=== PATIENT | female | born 1955 | race Two or more races ===

== ENCOUNTER 2024-06-21 09:41 | Outpatient (AMB) | payer MEDICARE, MEDICAID, SELFPAY ==
[2024-06-21 10:09] VITALS: BP 171/78; PULSE 68; RESP 16; TEMP 36.6; O2SAT 98; BMI 21.9
--- NOTE | 2024-06-21 10:09 | PD.RESCLINIC ---
Vital Signs 06/21/24 10:09 Height 1.57 m Height Method Stated Weight 54.204 kg Weight Measurement Method Standing Scale BMI 21.9 BP 171/78 H Blood Pressure Source Automatic Cuff Blood Pressure Location Left Upper Arm Position Sitting Respiration 16 Pulse 68 Pulse Source Monitor Temp 97.8 F Temp Source Temporal Artery Scan Pulse Oximetry (%) 98 Oxygen Delivery Method Room Air Allergies/Meds Allergies & Medications Allergies No Known Allergies Allergy (Verified 06/21/24 10:09) Medication Reconciliation blood-glucose meter (Accu-Chek Alejandrina Plus Meter) #1 ea 11/21/22 [Rx Confirmed 06/21/24] amlodipine 5 mg tablet 5 mg PO QDAY #30 tabs 06/21/24 [Rx] atorvastatin 80 mg tablet 80 mg PO QDAY 90 days #90 tabs 06/21/24 [Rx] blood sugar diagnostic (Accu-Chek Alejandrina Plus test strips) #100 ea 06/21/24 [Rx] clopidogrel 75 mg tablet (Plavix) 75 mg PO QDAY 90 days #90 tabs 06/21/24 [Rx] empagliflozin 25 mg tablet (Jardiance) 25 mg PO QAM diabetes 90 days #90 tabs 06/21/24 [Rx] lancets (Accu-Chek Softclix Lancets) #100 ea 06/21/24 [Rx] lisinopril 20 mg tablet 20 mg PO QDAY 3 months #90 tabs 06/21/24 [Rx] loratadine 10 mg tablet (Allergy Relief (loratadine)) 10 mg PO Q24H 1 month #60 tabs 06/21/24 [Rx] metformin 500 mg tablet 500 mg PO BIDWMEAL 90 days #180 tabs 06/21/24 [Rx] semaglutide 7 mg tablet (Rybelsus) 7 mg PO QDAY 3 months #90 tabs 06/21/24 [Rx] MA Intake Visit Data Collection New Patient or Established: Established Patient (seen at [facility] within 3 years) Seen by Clinical Staff ONLY (RN/MA): No Pain Present Currently: No Pain scale:: 0 Pain Scale Used: [place]/[employer]ical [place] Agent Required: No PCP or OBGYN visit in last 3 months: No Hx Now: No Do You Feel Safe at Home: Yes Authorities Contacted: N/A Smoking Status Smoking Status: Never smoker Immunization / Flu Flu Vaccine in the Last 12 Months: No Flu Vaccine Exclusion Criteria: No Exclusion Criteria Past Medical History Past Medical History NEUROLOGIC: Positive Cerebrovascular Accident; Negative Neurological Disorders CARDIAC: Positive Cardiac Disorders, Hypercholesterolemia and Hypertension; Negative Congestive Heart Failure RESPIRATORY: Negative Chronic Obstructive Pulmonary Disease (COPD) GASTROINTESTINAL: Negative Gastrointestinal Disorders GENITOURINARY: Negative Genitourinary Disorders or Renal Disease REPRODUCTIVE: Negative Pelvic Inflammatory Disease ENDOCRINE: Positive Diabetes Mellitus Type 2; Negative Diabetes Mellitus Type 1 HEMATOLOGIC: Negative Blood Disorders OTHER HISTORY: Positive Hospitalization (last admission 08/07/22) and Chicken Pox; Negative Autoimmune Disease, Down Syndrome, Developmental Delay, Shingles, Falls, Anesthesia Reactions, Measles or Cancer Family History FAMILY HISTORY: Negative Family Psychiatric Problems, Family Respiratory Disorders, Family Cardiac Disorders or Family Gastrointestinal Problems Surgical History SURGICAL: Positive Tubal Ligation; Negative Cardiac Surgery, Ear Surgery or Abdominal Surgery Social History SMOKING STATUS: Smoking status: Never smoker ALCOHOL: Alcohol Intake: Never HOUSING: Housing: House LIVES WITH: Lives With: Family OCCUPATION: Current occupation: Retired field attendant. Patient Portal Questionaires Social History Living Situation History Housing: House Tobacco History Smoking Status: Never smoker Alcohol History Alcohol Intake: Never Domestic Abuse History Do You Feel Safe at Home: Yes Review of Systems Report any current symptoms Only answer those that you have currently: Past Medical History Past Medical History Have you ever been diagnosed with any of the following: Neurological Problems Cerebrovascular Accident (CVA): Yes Cardiology Problems Hypercholesterolemia: Yes Congestive Heart Failure: No Hypertension: Yes Respiratory Problems Chronic Obstructive Pulmonary Disease (COPD): No Genital/Urinary Problems Renal Disease: No Reproductive Problems Pelvic Inflammatory Disease: No Endocrine Problems Diabetes Mellitus Type 1: No Diabetes Mellitus Type 2: Yes Other Problems Hospitalization: Yes (last admission 08/07/22) Autoimmune Disease: No Down Syndrome: No Developmental Delay: No Shingles: No Falls: No Anesthesia Reactions: No Chicken Pox: Yes Measles: No Cancer: No History of Present Illness HPI Narrative Patient is a 68-year-old Mosotho speaking female with a medical history of CVA, diabetes mellitus type 2, primary hypertension, and hyperlipidemia who presents to [facility] for follow-up. Patient reports since last visit she has been doing good. She denies any recent hospitalizations or acute illness. She has no new symptoms to report today. Patient has history of primary hypertension and currently taking lisinopril. Blood pressure 105/57 and heart rate 83. She denies lightheadedness, dizziness, and no palpitations. Previous systolic blood pressure readings have been trending in the 140s. Patient also denies chest pain, shortness of breath, dyspnea on exertion, and no lower extremity swelling. Patient has been following a low-salt diet. She has been going on daily walks for approximately 30 minutes around the high school. Patient has history of uncontrolled diabetes mellitus type 2. She has been taking Rybelsus, Jardiance, and metformin as prescribed. She denies any GI side effects such as diarrhea, constipation, or indigestion. Previous A1c 8.9% and now 7.6%. She denies any vision changes or numbness/tingling in her feet. She reports she has never seen a aviation electronic warfare operator. Patient also has history of CVA and hyperlipidemia. She denies having any residual deficits from her previous CVA. She has been compliant with daily aspirin 81 mg and high intensity atorvastatin. She denies any muscle pain. 09/12/23 Lipid panel: Total cholesterol 92, triglycerides 107, HDL 32, LDL 40 which is significantly improved from previous lipid panel. She denies seeing blood in her stool or urine. Patient denies requiring any medication refills at this time. Patient is retired and unemployed at this time. 09/12/2023: Chemistry panel: Glucose 88, BUN 11, CR 0.56, eGFR 101, NA 140, K4.7, CL 101, albumin 3.8, alk phos 147, AST 22, ALT 23 Lipid panel: Total cholesterol 92, triglycerides 107, HDL 32, LDL 40 A1c: 7.6% 12/18/2023: 68-year-old woman with past medical history of CVA, diabetes mellitus type 2, hypertension, hyperlipidemia who came today to the [facility] for follow-up, patient stated that she has been feeling well that she recently returned from her trip to [place] denied any acute complaints at this moment like chest pain, palpitations, dizziness, shortness of breath, vertigo, loss of balance or any other associated symptoms at this moment. She is stated that her blood pressure has been well-controlled at home today 113/62, all medications were refilled and due to the patient has been 1 year with dual antiplatelet therapy Plavix and aspirin will give the patient the option due to guidelines recommend 21 days of dual antiplatelet therapy after ischemic stroke otherwise the patient has 2 episodes of CVA 1 year ago we continued Plavix and aspirin for 1 year, I spoke with the patient about preference if she wanted to continue taking aspirin and Plavix and she decided that she will like to take only 1 medication for which we will continue Plavix 75 mg p.o. daily, the patient has been presenting blood pressure on the soft side amlodipine dose was decreased to 5 mg p.o. daily and we will continue Rybelsus 5 mg p.o. daily, metformin 500 mg p.o. twice daily Plavix 75 mg p.o. daily and atorvastatin 80 mg p.o. q. night, will give patient referral for yearly follow-up with fire fighter airport and aviation electronic warfare operator as well as referral for bone densitometry to scan for osteoporosis, patient was counseled about screening colonoscopy and she stated that at this moment she will like not to do the test and that she will think about it later, will give patient recommendation for Pneumovax and Shingrix vaccine. Follow-up in 1 month with labs results, A1c, CMP, lipid panel as well as micro albuminuria 12/15/2023: 68-year-old woman with past medical history of CVA, diabetes mellitus type 2, hypertension, hyperlipidemia who has seen via telehealth for lab results. patient stated that she is feeling well denied any acomplaints at this moment. labs results showed A1c downtrend from 7.6 to 7.0, microalbumin showed less than < 3.0 and albumin/creatinine ratio less than <8 within normal limits, we will continue current management for diabetes mellitus type 2 with rybelsus,empaglifozin and metformin, atorvastatin, plavix and lisinopril . follow up in 6 months with labs. pending dexascan and ophtalmologist and aviation electronic warfare operator annual follow up. 02/09/2024: 68-year-old woman with past medical history of CVA, diabetes mellitus type 2, hypertension, hyperlipidemia [facility] Patient denied any acute complains stated that she is feeling well, denied chest pain, palpitations, headache or dizzines . she stated that came today for medication refills due to she is traveling to [place] in early february/2024. Medication refills were given and we will continue current ,management with rybelsus, empaglifozin and metformin as well as atortastatin, plavix, lisinopril and amlodipine. Follow up in 6 months with labs, patient has a pending appointment for podiatry and ophthalmology for annual check up. we will work on pre auth por dexascan for osteoporosis screening. 06/21/2024: 69-year-old woman with past medical history of CVA, diabetes mellitus type 2, hypertension, hyperlipidemia who [facility]. Patient denied any other complaint at this moment and she stated that she is feeling well and denied any chest pain, palpitations, headache at or dizziness at the moment otherwise she recently arrive from [place] from vacation and she endorsed while she was traveling had an episode of dizziness and she went to the hospital and was found to be anemic requiring 2 units of PRBCs but she does not know the source of the bleeding. She denied melena's, black tarry stools, hematemesis at this moment. Patient previously was referred to gastroenterology for screening colonoscopy and due to insurance authorization needed to wait at a 30-day waiting to do the procedure. She also stated that while she was in [place] the physician who saw her she had her blood pressure medications. Today patient is hypertensive to 170s, labs showed a hemoglobin of 11.6 MCV of 78, platelets within normal limits, lipid panel cholesterol 100.5, triglycerides 144, HDL 36 and LDL 44, A1c increased from 7.0 to 7.9, albumin/creatinine radial less than 7, TSH within normal limits. Patient stated that she has an appointment with photographic technician and she stated that she does not have any retinopathy at this moment otherwise due to patient present bilateral pterygium we will order fire fighter airport referral as well as aviation electronic warfare operator referral for diabetic neuropathy screen. Patient stated that in the past was never called from insurance regarding authorization for aviation electronic warfare operator. We counseled the patient about importance of medication compliance as well as encourage healthy diet and lifestyle modifications to improve A1c. Due to patient present uncontrolled diabetes mellitus type 2 at this moment we will increase Rybelsus from 3 mg to 7 milligrams as well as lisinopril from 10 mg to 20 mg and follow-up in 2 weeks with BMP to monitor kidney function. Review of Systems Review of Systems Systems Reviewed: All systems reviewed, normal except as documented Objective/Exam Narrative Physical exam: General: No acute distress, well appearing, alert, interactive. HEENT: NC/AT, PERRL, EOMI, bilateral pterygium, good conjugate gaze, moist mucous membranes, oropharynx clear. Neck: Supple, No masses, No adenopathy, carotid pulse 2+ bilaterally without bruits, No JVD, normal range of motion. Chest: Symmetrical, atraumatic, and with equal expansion , Nontender on palpation no deformity and no crepitus. CVS: S1 and S2 present, Regular rate and rhythm, No murmurs, rubs or gallops perceived during auscultation. Lungs: Normal respiratory effort, CTAB, no wheezing, rhonchi or rales perceived during auscultation, No intercostal or subcostal retraction. Abdomen : Soft, no tenderness to palpation, no guarding ,no rebound, +BS, no organomegaly. Extremities: No edema, warm well perfused, normal tone and ROM, strength and sensation intact, cap refill less than 2, +2 dp equal bilaterally, able to move all 4 extremities spontaneously. Skin: Intact, no rashes, no lesions, no erythema or jaundice noted Neuro: AOx4, no focal neurologic deficits noted, GCS 15 Psych: Appropriate mood and affect. Assessment & Plan Diagnosis / Problem List (1) Type 2 diabetes mellitus: Status: Acute Qualifiers: Diabetes mellitus complication status: without complication Qualified Code(s): E11.9 - Type 2 diabetes mellitus without complications Assessment & Plan: last A1c 7.9 on 06/14/24 Uncontrolled at this moment will continue to encourage healthy lifestyle modifications and diet as well as continue medication adherence, to achieving good glucose control and be back on track on A1c goal of less than 7, microalbumin test did not showed proteinuria at this time other eugene we will continue ELLI to prevent proteinuria and decrease risk of kidney disease. Plan: ? Increase Rybelsus to 7 mg p.o. daily ? Continue metformin 500 mg p.o. twice daily ? Empagliflozin 25 mg p.o. daily follow-up with 3 months with labs (2) Uncontrolled hypertension: Status: Acute Assessment & Plan: Patient has past medical history of hypertension well-controlled initially on amlodipine 5 mg p.o. daily and lisinopril 10 mg p.o. daily otherwise d during our recent visit to [place] a physician change her progress prescription of lisinopril and switch to valsartan and metoprolol. We counseled the patient of importance to continue medications prescribed by PCP as well as healthy diet and lifestyle modifications, we will increase lisinopril dose to 20 g p.o. daily and follow-up in 2 weeks with BMP to monitor kidney function Plan: ? Increase lisinopril to 20 mg p.o. daily ? Continue amlodipine 5 mg p.o. daily ? Follow-up in 2 weeks with BMP to monitor kidney function (3) Pterygium of both eyes: Status: Acute Assessment & Plan: Patient has bilateral pterygium most likely secondary to sun exposure Plan: ? Ophthalmology Technician referral for possible surgery (4) Microcytic anemia: Status: Acute Assessment & Plan: Patient stated then a recent trip to [place] was found to be anemic requiring 2 units of PRBCs otherwise patient stated that she was never told what was the cause of the bleeding most likely could be secondary to diverticulosis versus hemorrhoids? vs malignancy? Otherwise malignancy less likely due to patient does not endorse symptoms like weight loss, poor appetite, generalized weakness or constipation. Patient was ordered in the past colonoscopy screening for malignant neoplasm of the colon otherwise due to insurance authorization patient need to have a 30-day wait for procedure. In this basis we will order referral for gastroenterology for colonoscopy screening Hemoglobin 11.6 MCV 78 Plan: ? Reorder referral for gastroenterology for colonoscopy screening (5) Hyperlipidemia: Status: Acute Qualifiers: Hyperlipidemia type: unspecified Qualified Code(s): E78.5 - Hyperlipidemia, unspecified Assessment & Plan: Patient has previous history of hyperlipidemia and ischemic stroke Plan: Continue atorvastatin 80 mg p.o. q. night follow-up with labs in 6 months (6) History of CVA (cerebrovascular accident) without residual deficits: Status: Acute Assessment & Plan: Patient was on 1 year in dual antiplatelet therapy with aspirin and Plavix per guidelines is require 21 days of dual antiplatelet therapy for ischemic stroke we spoke with the patient about preference to continue aspirin and Plavix or continue with only 1 medication for stroke prevention and patient decided that she would like to continue with Plavix for which ASA was discontinued. Plan: Continue Plavix 75 mg p.o. daily (7) Screen for colon cancer: Status: Acute Assessment & Plan: Previous order for colonoscopy otherwise due to insurance authorization we will reorder referral for gastroenterology Plan: ? Reorder gastroenterology referral for colonoscopy screening Orders: Referrals Podiatry Z13.89 - Encounter for screening for other disorder Ophthalmology H11.003 - Unspecified pterygium of eye, bilateral Gastroenterology Z12.11 - Encounter for screening for malignant neoplasm of colon Additional Assessment Patient discussed with my attending Dr Shu Raymond MD PGY-3 Disclaimer: Despite multiple revisions, due to the dictation software being used, the document bellow may not be free of grammatical errors including phonetic/typographic errors. However, this does not deter from our commitment to providing health care in the patient's best interest in mind. Internal Medicine Attending Note: Case discussed with and agree with note and management plan of Resident Physician as per Resident's Note above. Issues of concern for present visit are as follows: Follow-up visit. Diabetes self-care reviewed including diet, exercise, footcare, eye care. Hemoglobin A1c up to 7.9. Patient recently in [place]. Plan increase in Rybelsus to 7 mg daily from 3 mg. Patient noted to be hypertensive today at 171/78. Will increase lisinopril to 20 mg. Follow-up in 2 weeks with labs. Apparently in [place], patient had an episode of dizziness, went to the hospital, found to be anemic, apparently required 2 units transfusion. No source of bleeding was identified. Recheck of hemoglobin on recent labs showed hemoglobin of 11.6 with MCV of 78. Monitor for further bleeding. Patient has previously been referred to gastroenterology for screening colonoscopy which should be completed. Nav Ireland MD Addendum: 06/24/2024-patient presented to office. She was unable to obtain Rybelsus 7 mg from the pharmacy as she had recently been supplied with a 90-day supply of Rybelsus 3 mg. Patient instructed to continue on Rybelsus 3 mg daily, and to try to limit carbohydrate intake and really watch diet. Will address at follow-up visit. Advanced Care Planning Advance care planning discussed with:: patient Physician Billing Established Patient Established Patient: E/M Level 3-CPT 65143 Previous Counseling Previous Counseling: IND 30 min-CPT 52811 (Lifestyle modifications and medications adherence to achieve blood pressure and glycemic control) Office Procedures [facility] Level of Care Nursing/Assessment Patient Status: Established Patient Nursing Assessment/Reassessment: Medication Reconciliation, Update PMH in EMR and Vital Signs Coordination of Care: Complex Care and Chronic Disease 1-5, Consent,records obtained, informed consent, Education Simp Pt/Fam, Ref for ancillary service, Results/Orders obtained and Staff clarify orders Established Patient Charge Established Patient Point Assignment: 110 Established Patient Point Charge: EP Level 3 (80-115)
== END 2024-06-21 10:54 | disposition home or self-care (01) ==
LOC: HODAHC 09:41
PROVIDERS: PCP Student in an Organized Health Care Education/Training Program; Referring Provider Student in an Organized Health Care Education/Training Program; Supervising Provider Internal Medicine; Visit Provider Student in an Organized Health Care Education/Training Program
DX: H11.003 Unspecified pterygium of eye, bilateral (principal); I10 Essential (primary) hypertension; D50.9 Iron deficiency anemia, unspecified; E78.5 Hyperlipidemia, unspecified; E11.9 Type 2 diabetes mellitus without complications; Z79.84 Long term (current) use of oral hypoglycemic drugs; Z86.73 Personal history of transient ischemic attack (TIA), and cerebral infarction without residual deficits; Z79.02 Long term (current) use of antithrombotics/antiplatelets
CPT/HCPCS: 99213; G0463

== ENCOUNTER 2024-07-05 09:54 | Outpatient (AMB) | payer MEDICARE, MEDICAID, SELFPAY ==
[2024-07-05 10:05] VITALS: BP 138/68; PULSE 104; RESP 16; TEMP 36.8; O2SAT 98; BMI 21.7
--- NOTE | 2024-07-05 10:05 | PD.RESCLINIC ---
Vital Signs 07/05/24 10:05 Height 1.57 m Height Method Stated Weight 53.524 kg Weight Measurement Method Standing Scale BMI 21.7 BP 138/68 H Blood Pressure Source Automatic Cuff Blood Pressure Location Left Upper Arm Position Sitting Respiration 16 Pulse 104 H Pulse Source Monitor Temp 98.2 F Temp Source Temporal Artery Scan Pulse Oximetry (%) 98 Oxygen Delivery Method Room Air Allergies/Meds Allergies & Medications Allergies No Known Allergies Allergy (Verified 07/05/24 10:06) Medication Reconciliation blood-glucose meter (Accu-Chek Alejandrina Plus Meter) #1 ea 11/21/22 [Rx Confirmed 07/05/24] amlodipine 5 mg tablet 5 mg PO QDAY #30 tabs 07/05/24 [Rx] atorvastatin 80 mg tablet 80 mg PO QDAY 90 days #90 tabs 07/05/24 [Rx] blood sugar diagnostic (Accu-Chek Alejandrina Plus test strips) #100 ea 07/05/24 [Rx] clopidogrel 75 mg tablet (Plavix) 75 mg PO QDAY 90 days #90 tabs 07/05/24 [Rx] empagliflozin 25 mg tablet (Jardiance) 25 mg PO QAM diabetes 90 days #90 tabs 07/05/24 [Rx] lancets (Accu-Chek Softclix Lancets) #100 ea 07/05/24 [Rx] lisinopril 20 mg tablet 20 mg PO QDAY 3 months #90 tabs 07/05/24 [Rx] loratadine 10 mg tablet (Allergy Relief (loratadine)) 10 mg PO Q24H 1 month #60 tabs 07/05/24 [Rx] metformin 500 mg tablet 500 mg PO BIDWMEAL 90 days #180 tabs 07/05/24 [Rx] semaglutide 7 mg tablet (Rybelsus) 7 mg PO QDAY 3 months #90 tabs 07/05/24 [Rx] MA Intake Visit Data Collection New Patient or Established: Established Patient (seen at [facility] within 3 years) Seen by Clinical Staff ONLY (RN/MA): No Pain Present Currently: No Pain scale:: 0 Pain Scale Used: Brewster-Aggarwal/Numerical Lpn Home Health Required: No PCP or OBGYN visit in last 3 months: No Hx Now: No Do You Feel Safe at Home: Yes Authorities Contacted: N/A Smoking Status Smoking Status: Never smoker Immunization / Flu Flu Vaccine in the Last 12 Months: No Flu Vaccine Exclusion Criteria: No Exclusion Criteria Past Medical History Past Medical History NEUROLOGIC: Positive Cerebrovascular Accident; Negative Neurological Disorders CARDIAC: Positive Cardiac Disorders, Hypercholesterolemia and Hypertension; Negative Congestive Heart Failure RESPIRATORY: Negative Chronic Obstructive Pulmonary Disease (COPD) GASTROINTESTINAL: Negative Gastrointestinal Disorders GENITOURINARY: Negative Genitourinary Disorders or Renal Disease REPRODUCTIVE: Negative Pelvic Inflammatory Disease ENDOCRINE: Positive Diabetes Mellitus Type 2; Negative Diabetes Mellitus Type 1 HEMATOLOGIC: Negative Blood Disorders OTHER HISTORY: Positive Hospitalization (last admission 08/07/22) and Chicken Pox; Negative Autoimmune Disease, Down Syndrome, Developmental Delay, Shingles, Falls, Anesthesia Reactions, Measles or Cancer Family History FAMILY HISTORY: Negative Family Psychiatric Problems, Family Respiratory Disorders, Family Cardiac Disorders or Family Gastrointestinal Problems Surgical History SURGICAL: Positive Tubal Ligation; Negative Cardiac Surgery, Ear Surgery or Abdominal Surgery Social History SMOKING STATUS: Smoking status: Never smoker ALCOHOL: Alcohol Intake: Never HOUSING: Housing: House LIVES WITH: Lives With: Family OCCUPATION: Current occupation: Retired field advisor. Patient Portal Questionaires Social History Living Situation History Housing: House Tobacco History Smoking Status: Never smoker Alcohol History Alcohol Intake: Never Domestic Abuse History Do You Feel Safe at Home: Yes Review of Systems Report any current symptoms Only answer those that you have currently: Past Medical History Past Medical History Have you ever been diagnosed with any of the following: Neurological Problems Cerebrovascular Accident (CVA): Yes Cardiology Problems Hypercholesterolemia: Yes Congestive Heart Failure: No Hypertension: Yes Respiratory Problems Chronic Obstructive Pulmonary Disease (COPD): No Genital/Urinary Problems Renal Disease: No Reproductive Problems Pelvic Inflammatory Disease: No Endocrine Problems Diabetes Mellitus Type 1: No Diabetes Mellitus Type 2: Yes Other Problems Hospitalization: Yes (last admission 08/07/22) Autoimmune Disease: No Down Syndrome: No Developmental Delay: No Shingles: No Falls: No Anesthesia Reactions: No Chicken Pox: Yes Measles: No Cancer: No History of Present Illness HPI Narrative Patient is a 68-year-old Dominican speaking female with a medical history of CVA, diabetes mellitus type 2, primary hypertension, and hyperlipidemia who presents to [facility] for follow-up. Patient reports since last visit she has been doing good. She denies any recent hospitalizations or acute illness. She has no new symptoms to report today. Patient has history of primary hypertension and currently taking lisinopril. Blood pressure 105/57 and heart rate 83. She denies lightheadedness, dizziness, and no palpitations. Previous systolic blood pressure readings have been trending in the 140s. Patient also denies chest pain, shortness of breath, dyspnea on exertion, and no lower extremity swelling. Patient has been following a low-salt diet. She has been going on daily walks for approximately 30 minutes around the high school. Patient has history of uncontrolled diabetes mellitus type 2. She has been taking Rybelsus, Jardiance, and metformin as prescribed. She denies any GI side effects such as diarrhea, constipation, or indigestion. Previous A1c 8.9% and now 7.6%. She denies any vision changes or numbness/tingling in her feet. She reports she has never seen a flower arranger. Patient also has history of CVA and hyperlipidemia. She denies having any residual deficits from her previous CVA. She has been compliant with daily aspirin 81 mg and high intensity atorvastatin. She denies any muscle pain. 09/12/23 Lipid panel: Total cholesterol 92, triglycerides 107, HDL 32, LDL 40 which is significantly improved from previous lipid panel. She denies seeing blood in her stool or urine. Patient denies requiring any medication refills at this time. Patient is retired and unemployed at this time. 09/12/2023: Chemistry panel: Glucose 88, BUN 11, CR 0.56, eGFR 101, NA 140, K4.7, CL 101, albumin 3.8, alk phos 147, AST 22, ALT 23 Lipid panel: Total cholesterol 92, triglycerides 107, HDL 32, LDL 40 A1c: 7.6% 12/18/2023: 68-year-old woman with past medical history of CVA, diabetes mellitus type 2, hypertension, hyperlipidemia who came today to the [facility] for follow-up, patient stated that she has been feeling well that she recently returned from her trip to [place] denied any acute complaints at this moment like chest pain, palpitations, dizziness, shortness of breath, vertigo, loss of balance or any other associated symptoms at this moment. She is stated that her blood pressure has been well-controlled at home today 113/62, all medications were refilled and due to the patient has been 1 year with dual antiplatelet therapy Plavix and aspirin will give the patient the option due to guidelines recommend 21 days of dual antiplatelet therapy after ischemic stroke otherwise the patient has 2 episodes of CVA 1 year ago we continued Plavix and aspirin for 1 year, I spoke with the patient about preference if she wanted to continue taking aspirin and Plavix and she decided that she will like to take only 1 medication for which we will continue Plavix 75 mg p.o. daily, the patient has been presenting blood pressure on the soft side amlodipine dose was decreased to 5 mg p.o. daily and we will continue Rybelsus 5 mg p.o. daily, metformin 500 mg p.o. twice daily Plavix 75 mg p.o. daily and atorvastatin 80 mg p.o. q. night, will give patient referral for yearly follow-up with customer advocacy manager and flower arranger as well as referral for bone densitometry to scan for osteoporosis, patient was counseled about screening colonoscopy and she stated that at this moment she will like not to do the test and that she will think about it later, will give patient recommendation for Pneumovax and Shingrix vaccine. Follow-up in 1 month with labs results, A1c, CMP, lipid panel as well as micro albuminuria 12/15/2023: 68-year-old woman with past medical history of CVA, diabetes mellitus type 2, hypertension, hyperlipidemia who has seen via telehealth for lab results. patient stated that she is feeling well denied any acomplaints at this moment. labs results showed A1c downtrend from 7.6 to 7.0, microalbumin showed less than < 3.0 and albumin/creatinine ratio less than <8 within normal limits, we will continue current management for diabetes mellitus type 2 with rybelsus,empaglifozin and metformin, atorvastatin, plavix and lisinopril . follow up in 6 months with labs. pending dexascan and ophtalmologist and flower arranger annual follow up. 02/09/2024: 68-year-old woman with past medical history of CVA, diabetes mellitus type 2, hypertension, hyperlipidemia who came today to the [facility] for follow up. Patient denied any acute complains stated that she is feeling well, denied chest pain, palpitations, headache or dizzines . she stated that came today for medication refills due to she is traveling to [place] in early february/2024. Medication refills were given and we will continue current ,management with rybelsus, empaglifozin and metformin as well as atortastatin, plavix, lisinopril and amlodipine. Follow up in 6 months with labs, patient has a pending appointment for podiatry and ophthalmology for annual check up. we will work on pre auth por dexascan for osteoporosis screening. 06/21/2024: 69-year-old woman with past medical history of CVA, diabetes mellitus type 2, hypertension, hyperlipidemia who came today to the [facility] for 6-month follow-up. Patient denied any other complaint at this moment and she stated that she is feeling well and denied any chest pain, palpitations, headache at or dizziness at the moment otherwise she recently arrive from [place] from vacation and she endorsed while she was traveling had an episode of dizziness and she went to the hospital and was found to be anemic requiring 2 units of PRBCs but she does not know the source of the bleeding. She denied melena's, black tarry stools, hematemesis at this moment. Patient previously was referred to gastroenterology for screening colonoscopy and due to insurance authorization needed to wait at a 30-day waiting to do the procedure. She also stated that while she was in [place] the physician who saw her she had her blood pressure medications. Today patient is hypertensive to 170s, labs showed a hemoglobin of 11.6 MCV of 78, platelets within normal limits, lipid panel cholesterol 100.5, triglycerides 144, HDL 36 and LDL 44, A1c increased from 7.0 to 7.9, albumin/creatinine radial less than 7, TSH within normal limits. Patient stated that she has an appointment with ice bag assembler and she stated that she does not have any retinopathy at this moment otherwise due to patient present bilateral pterygium we will order customer advocacy manager referral as well as flower arranger referral for diabetic neuropathy screen. Patient stated that in the past was never called from insurance regarding authorization for flower arranger. We counseled the patient about importance of medication compliance as well as encourage healthy diet and lifestyle modifications to improve A1c. Due to patient present uncontrolled diabetes mellitus type 2 at this moment we will increase Rybelsus from 3 mg to 7 milligrams as well as lisinopril from 10 mg to 20 mg and follow-up in 2 weeks with BMP to monitor kidney function. 07/05/2024: 69-year-old woman with past medical history of CVA, diabetes mellitus type 2, hypertension, hyperlipidemia who came today to the [facility] for follow up with labs after incresing her dose of lisinopril to 20 mg q day . patient stated that she is feeling well denied any acute complains at this moment , like dizzyness, sob , melenas or any other associated symptoms. she stated that she saw her flower arranger already and he order some CMP for check liver function before prescibing antifungals for onychomiscosis . pending gastroenterology appointment for screen colonoscopy and ophatalmology appointment for pterigium possible surgery. BMP shows creatinine has been stable 0.63 after increasing the lisinopril dose, blood pressure reading today was well-controlled 138/68 we will follow-up in 2 months with labs and we will assess patient medication tolerance and later we can try to increase the dose for target blood pressure below 130/90 .We gave patient refills of all the medications Rybelsus, lisinopril, amlodipine, metformin, atorvastatin and Plavix. And we will follow-up with labs in August before patient travel back to [place] for 3 months vacation. Review of Systems Review of Systems Systems Reviewed: All systems reviewed, normal except as documented Objective/Exam Narrative Physical exam: General: No acute distress, well appearing, alert, interactive. HEENT: NC/AT, PERRL, EOMI, bilateral pterygium, good conjugate gaze, moist mucous membranes, oropharynx clear. Neck: Supple, No masses, No adenopathy, carotid pulse 2+ bilaterally without bruits, No JVD, normal range of motion. Chest: Symmetrical, atraumatic, and with equal expansion , Nontender on palpation no deformity and no crepitus. CVS: S1 and S2 present, Regular rate and rhythm, No murmurs, rubs or gallops perceived during auscultation. Lungs: Normal respiratory effort, CTAB, no wheezing, rhonchi or rales perceived during auscultation, No intercostal or subcostal retraction. Abdomen : Soft, no tenderness to palpation, no guarding ,no rebound, +BS, no organomegaly. Extremities: No edema, bilateral onychomycosis, warm well perfused, normal tone and ROM, strength and sensation intact, cap refill less than 2, +2 dp equal bilaterally, able to move all 4 extremities spontaneously. Skin: Intact, no rashes, no lesions, no erythema or jaundice noted Neuro: AOx4, no focal neurologic deficits noted, GCS 15 Psych: Appropriate mood and affect. Assessment & Plan Diagnosis / Problem List (1) Uncontrolled hypertension: Status: Acute Assessment & Plan: Patient has past medical history of hypertension well-controlled initially on amlodipine 5 mg p.o. daily and lisinopril 10 mg p.o. daily otherwise d during our recent visit to [place] a physician change her progress prescription of lisinopril and switch to valsartan and metoprolol. We counseled the patient of importance to continue medications prescribed by PCP as well as healthy diet and lifestyle modifications, patient tolerated well lisinopril 20 kidney function within normal limits after dose was increased. We will assess medication tolerance against in 2 months for further goal of blood pressure below 130/90 Plan: ? Continue lisinopril to 20 mg p.o. daily ? Continue amlodipine 5 mg p.o. daily ? Follow-up in 2 months with labs (2) Type 2 diabetes mellitus: Status: Acute Qualifiers: Diabetes mellitus complication status: without complication Qualified Code(s): E11.9 - Type 2 diabetes mellitus without complications Assessment & Plan: last A1c 7.9 on 06/14/24 Uncontrolled at this moment will continue to encourage healthy lifestyle modifications and diet as well as continue medication adherence, to achieving good glucose control and be back on track on A1c goal of less than 7, microalbumin test did not showed proteinuria at this time other eugene we will continue ELLI to prevent proteinuria and decrease risk of kidney disease. Plan: ? Continue Rybelsus to 7 mg p.o. daily ? Continue metformin 500 mg p.o. twice daily ? Empagliflozin 25 mg p.o. daily follow-up with 2 months with lab (3) Microcytic anemia: Status: Acute Assessment & Plan: Patient stated then a recent trip to [place] was found to be anemic requiring 2 units of PRBCs otherwise patient stated that she was never told what was the cause of the bleeding most likely could be secondary to diverticulosis versus hemorrhoids? vs malignancy? Otherwise malignancy less likely due to patient does not endorse symptoms like weight loss, poor appetite, generalized weakness or constipation. Patient was ordered in the past colonoscopy screening for malignant neoplasm of the colon otherwise due to insurance authorization patient need to have a 30-day wait for procedure. In this basis we will order referral for gastroenterology for colonoscopy screening Hemoglobin 11.6 MCV 78 Plan: ? Reorder referral for gastroenterology for colonoscopy screening ? Follow-up in 2 months with CBC, ferritin, iron panel (4) Pterygium of both eyes: Status: Acute Assessment & Plan: Patient has bilateral pterygium most likely secondary to sun exposure Plan: ? Demand Planning Manager referral for possible surgery (5) Hyperlipidemia: Status: Acute Qualifiers: Hyperlipidemia type: unspecified Qualified Code(s): E78.5 - Hyperlipidemia, unspecified Assessment & Plan: Patient has previous history of hyperlipidemia and ischemic stroke Plan: Continue atorvastatin 80 mg p.o. q. night follow-up with labs in 2 months (6) History of CVA (cerebrovascular accident) without residual deficits: Status: Acute Assessment & Plan: Patient was on 1 year in dual antiplatelet therapy with aspirin and Plavix per guidelines is require 21 days of dual antiplatelet therapy for ischemic stroke we spoke with the patient about preference to continue aspirin and Plavix or continue with only 1 medication for stroke prevention and patient decided that she would like to continue with Plavix for which ASA was discontinued. Plan: Continue Plavix 75 mg p.o. daily (7) Screen for colon cancer: Status: Acute Assessment & Plan: Previous order for colonoscopy otherwise due to insurance authorization we will reorder referral for gastroenterology Plan: ? Pending gastroenterology appointment for colonoscopy screening Orders: Orders Ambulatory Hemoglobin A1C 2 Months Iron Panel 2 Months Comprehensive Metabolic Panel 2 Days CBC 2 Months D50.9 - Iron deficiency anemia, unspecified Lipid Panel 2 Months Ferritin 2 Months Additional Assessment Patient discussed with my attending Dr Shu Raymond MD PGY-3 Disclaimer: Despite multiple revisions, due to the dictation software being used, the document bellow may not be free of grammatical errors including phonetic/typographic errors. However, this does not deter from our commitment to providing health care in the patient's best interest in mind. Internal Medicine Attending Note: Case discussed with and agree with note and management plan of Resident Physician as per Resident's Note above. Issues of concern for present visit are as follows: Follow-up visit. Tolerated increased dose of ELLI inhibitor. Diabetes self-care reviewed including diet, exercise, footcare, eye care. Labs reviewed, in acceptable range. Blood pressure under better control today at 138/68. Needed refills provided today. Patient is to follow-up with ophthalmology as well has a pending gastroenterology appointment for screening colonoscopy. We will see prior to her returning to [place] where she stays for an extended period of time each year. Nav Ireland MD Advanced Care Planning Advance care planning discussed with:: patient Physician Billing Established Patient Established Patient: E/M Level 3-CPT 05012 Established PCPM Established Patient PCPM: E/M 65+ yrs-CPT 70302 Previous Counseling Previous Counseling: IND 30 min-CPT 39131 Office Procedures [facility] Level of Care Nursing/Assessment Patient Status: Established Patient Nursing Assessment/Reassessment: Medication Reconciliation, Update PMH in EMR and Vital Signs Coordination of Care: Complex Care and Chronic Disease 1-5, Consent,records obtained, informed consent, Education Simp Pt/Fam, Results/Orders obtained and Staff clarify orders Established Patient Charge Established Patient Point Assignment: 90 Established Patient Point Charge: EP Level 3 (80-115)
== END 2024-07-05 10:26 | disposition home or self-care (01) ==
LOC: HODAHC 09:54
PROVIDERS: PCP Student in an Organized Health Care Education/Training Program; Referring Provider Student in an Organized Health Care Education/Training Program; Supervising Provider Internal Medicine; Visit Provider Student in an Organized Health Care Education/Training Program
DX: Z71.2 Person consulting for explanation of examination or test findings (principal); I10 Essential (primary) hypertension; E11.9 Type 2 diabetes mellitus without complications; E78.5 Hyperlipidemia, unspecified; Z86.73 Personal history of transient ischemic attack (TIA), and cerebral infarction without residual deficits; Z79.84 Long term (current) use of oral hypoglycemic drugs; D50.9 Iron deficiency anemia, unspecified; H11.003 Unspecified pterygium of eye, bilateral; Z79.02 Long term (current) use of antithrombotics/antiplatelets
CPT/HCPCS: 99213; G0463

== ENCOUNTER 2024-08-30 09:19 | Outpatient (AMB) | payer MEDICARE, MEDICAID, SELFPAY ==
[2024-08-30 09:39] VITALS: BP 146/75; PULSE 74; RESP 18; TEMP 36.6; O2SAT 99; BMI 21.5
--- NOTE | 2024-08-30 09:39 | PD.RESCLINIC ---
Vital Signs 08/30/24 09:39 Height 1.57 m Height Method Stated Weight 53.127 kg Weight Measurement Method Standing Scale BMI 21.5 BP 146/75 H Blood Pressure Source Automatic Cuff Blood Pressure Location Right Upper Arm Position Sitting Respiration 18 Pulse 74 Pulse Source Monitor Temp 97.8 F Temp Source Temporal Artery Scan Pulse Oximetry (%) 99 Oxygen Delivery Method Room Air Allergies/Meds Allergies & Medications Allergies No Known Allergies Allergy (Verified 08/30/24 09:42) Medication Reconciliation blood-glucose meter (Accu-Chek Alejandrina Plus Meter) #1 ea 11/21/22 [Rx Confirmed 08/30/24] amlodipine 10 mg tablet 10 mg PO QDAY 3 months #90 tabs 08/30/24 [Rx] atorvastatin 80 mg tablet 80 mg PO QDAY 90 days #90 tabs 08/30/24 [Rx] blood sugar diagnostic (Accu-Chek Alejandrina Plus test strips) #100 ea 08/30/24 [Rx] clopidogrel 75 mg tablet (Plavix) 75 mg PO QDAY 90 days #90 tabs 08/30/24 [Rx] empagliflozin 25 mg tablet (Jardiance) 25 mg PO QAM diabetes 90 days #90 tabs 08/30/24 [Rx] lancets (Accu-Chek Softclix Lancets) #100 ea 08/30/24 [Rx] lisinopril 20 mg tablet 20 mg PO QDAY 3 months #90 tabs 08/30/24 [Rx] loratadine 10 mg tablet (Allergy Relief (loratadine)) 10 mg PO Q24H 1 month #60 tabs 08/30/24 [Rx] metformin 500 mg tablet 500 mg PO BIDWMEAL 90 days #180 tabs 08/30/24 [Rx] pantoprazole 40 mg tablet,delayed release 40 mg PO QDAY gerd 3 months #90 tabs 08/30/24 [Rx] semaglutide 7 mg tablet (Rybelsus) 7 mg PO QDAY 3 months #90 tabs 08/30/24 [Rx] MA Intake Visit Data Collection New Patient or Established: Established Patient (seen at [facility] within 3 years) Seen by Clinical Staff ONLY (RN/MA): No Pain Present Currently: No Pain scale:: 0 Pain Scale Used: BrewsterAnna/Numerical Combination Building Inspector Required: No PCP or OBGYN visit in last 3 months: Yes Hx Now: No Smoking Status Smoking Status: Never smoker Immunization / Flu Flu Vaccine in the Last 12 Months: Yes Flu Vaccine Exclusion Criteria: Already Received Past Medical History Past Medical History NEUROLOGIC: Positive Cerebrovascular Accident; Negative Neurological Disorders CARDIAC: Positive Cardiac Disorders, Hypercholesterolemia and Hypertension; Negative Congestive Heart Failure RESPIRATORY: Negative Chronic Obstructive Pulmonary Disease (COPD) GASTROINTESTINAL: Negative Gastrointestinal Disorders GENITOURINARY: Negative Genitourinary Disorders or Renal Disease REPRODUCTIVE: Negative Pelvic Inflammatory Disease ENDOCRINE: Positive Diabetes Mellitus Type 2; Negative Diabetes Mellitus Type 1 HEMATOLOGIC: Negative Blood Disorders OTHER HISTORY: Positive Hospitalization (last admission 08/07/22) and Chicken Pox; Negative Autoimmune Disease, Down Syndrome, Developmental Delay, Shingles, Falls, Anesthesia Reactions, Measles or Cancer Family History FAMILY HISTORY: Negative Family Psychiatric Problems, Family Respiratory Disorders, Family Cardiac Disorders or Family Gastrointestinal Problems Surgical History SURGICAL: Positive Tubal Ligation; Negative Cardiac Surgery, Ear Surgery or Abdominal Surgery Social History SMOKING STATUS: Smoking status: Never smoker ALCOHOL: Alcohol Intake: Never HOUSING: Housing: House LIVES WITH: Lives With: Family OCCUPATION: Current occupation: Retired ag equipment field service technician. Patient Portal Questionaires Social History Living Situation History Housing: House Tobacco History Smoking Status: Never smoker Alcohol History Alcohol Intake: Never Review of Systems Report any current symptoms Only answer those that you have currently: Past Medical History Past Medical History Have you ever been diagnosed with any of the following: Neurological Problems Cerebrovascular Accident (CVA): Yes Cardiology Problems Hypercholesterolemia: Yes Congestive Heart Failure: No Hypertension: Yes Respiratory Problems Chronic Obstructive Pulmonary Disease (COPD): No Genital/Urinary Problems Renal Disease: No Reproductive Problems Pelvic Inflammatory Disease: No Endocrine Problems Diabetes Mellitus Type 1: No Diabetes Mellitus Type 2: Yes Other Problems Hospitalization: Yes (last admission 08/07/22) Autoimmune Disease: No Down Syndrome: No Developmental Delay: No Shingles: No Falls: No Anesthesia Reactions: No Chicken Pox: Yes Measles: No Cancer: No History of Present Illness HPI Narrative Patient is a 68-year-old Georgian speaking female with a medical history of CVA, diabetes mellitus type 2, primary hypertension, and hyperlipidemia who presents to [facility] for follow-up. Patient reports since last visit she has been doing good. She denies any recent hospitalizations or acute illness. She has no new symptoms to report today. Patient has history of primary hypertension and currently taking lisinopril. Blood pressure 105/57 and heart rate 83. She denies lightheadedness, dizziness, and no palpitations. Previous systolic blood pressure readings have been trending in the 140s. Patient also denies chest pain, shortness of breath, dyspnea on exertion, and no lower extremity swelling. Patient has been following a low-salt diet. She has been going on daily walks for approximately 30 minutes around the high school. Patient has history of uncontrolled diabetes mellitus type 2. She has been taking Rybelsus, Jardiance, and metformin as prescribed. She denies any GI side effects such as diarrhea, constipation, or indigestion. Previous A1c 8.9% and now 7.6%. She denies any vision changes or numbness/tingling in her feet. She reports she has never seen a security engineer. Patient also has history of CVA and hyperlipidemia. She denies having any residual deficits from her previous CVA. She has been compliant with daily aspirin 81 mg and high intensity atorvastatin. She denies any muscle pain. 09/12/23 Lipid panel: Total cholesterol 92, triglycerides 107, HDL 32, LDL 40 which is significantly improved from previous lipid panel. She denies seeing blood in her stool or urine. Patient denies requiring any medication refills at this time. Patient is retired and unemployed at this time. 09/12/2023: Chemistry panel: Glucose 88, BUN 11, CR 0.56, eGFR 101, NA 140, K4.7, CL 101, albumin 3.8, alk phos 147, AST 22, ALT 23 Lipid panel: Total cholesterol 92, triglycerides 107, HDL 32, LDL 40 A1c: 7.6% 12/18/2023: 68-year-old woman with past medical history of CVA, diabetes mellitus type 2, hypertension, hyperlipidemia who came today to the [facility] for follow-up, patient stated that she has been feeling well that she recently returned from her trip to [place] denied any acute complaints at this moment like chest pain, palpitations, dizziness, shortness of breath, vertigo, loss of balance or any other associated symptoms at this moment. She is stated that her blood pressure has been well-controlled at home today 113/62, all medications were refilled and due to the patient has been 1 year with dual antiplatelet therapy Plavix and aspirin will give the patient the option due to guidelines recommend 21 days of dual antiplatelet therapy after ischemic stroke otherwise the patient has 2 episodes of CVA 1 year ago we continued Plavix and aspirin for 1 year, I spoke with the patient about preference if she wanted to continue taking aspirin and Plavix and she decided that she will like to take only 1 medication for which we will continue Plavix 75 mg p.o. daily, the patient has been presenting blood pressure on the soft side amlodipine dose was decreased to 5 mg p.o. daily and we will continue Rybelsus 5 mg p.o. daily, metformin 500 mg p.o. twice daily Plavix 75 mg p.o. daily and atorvastatin 80 mg p.o. q. night, will give patient referral for yearly follow-up with last repairer helper and security engineer as well as referral for bone densitometry to scan for osteoporosis, patient was counseled about screening colonoscopy and she stated that at this moment she will like not to do the test and that she will think about it later, will give patient recommendation for Pneumovax and Shingrix vaccine. Follow-up in 1 month with labs results, A1c, CMP, lipid panel as well as micro albuminuria 12/15/2023: 68-year-old woman with past medical history of CVA, diabetes mellitus type 2, hypertension, hyperlipidemia who has seen via telehealth for lab results. patient stated that she is feeling well denied any acomplaints at this moment. labs results showed A1c downtrend from 7.6 to 7.0, microalbumin showed less than < 3.0 and albumin/creatinine ratio less than <8 within normal limits, we will continue current management for diabetes mellitus type 2 with rybelsus,empaglifozin and metformin, atorvastatin, plavix and lisinopril . follow up in 6 months with labs. pending dexascan and ophtalmologist and security engineer annual follow up. 02/09/2024: 68-year-old woman with past medical history of CVA, diabetes mellitus type 2, hypertension, hyperlipidemia who came today to the [facility] for follow up. Patient denied any acute complains stated that she is feeling well, denied chest pain, palpitations, headache or dizzines . she stated that came today for medication refills due to she is traveling to [place] in early february/2024. Medication refills were given and we will continue current ,management with rybelsus, empaglifozin and metformin as well as atortastatin, plavix, lisinopril and amlodipine. Follow up in 6 months with labs, patient has a pending appointment for podiatry and ophthalmology for annual check up. we will work on pre auth por dexascan for osteoporosis screening. 06/21/2024: 69-year-old woman with past medical history of CVA, diabetes mellitus type 2, hypertension, hyperlipidemia who came today to the [facility] for 6-month follow-up. Patient denied any other complaint at this moment and she stated that she is feeling well and denied any chest pain, palpitations, headache at or dizziness at the moment otherwise she recently arrive from [place] from vacation and she endorsed while she was traveling had an episode of dizziness and she went to the hospital and was found to be anemic requiring 2 units of PRBCs but she does not know the source of the bleeding. She denied melena's, black tarry stools, hematemesis at this moment. Patient previously was referred to gastroenterology for screening colonoscopy and due to insurance authorization needed to wait at a 30-day waiting to do the procedure. She also stated that while she was in [place] the physician who saw her she had her blood pressure medications. Today patient is hypertensive to 170s, labs showed a hemoglobin of 11.6 MCV of 78, platelets within normal limits, lipid panel cholesterol 100.5, triglycerides 144, HDL 36 and LDL 44, A1c increased from 7.0 to 7.9, albumin/creatinine radial less than 7, TSH within normal limits. Patient stated that she has an appointment with casting house laborer and she stated that she does not have any retinopathy at this moment otherwise due to patient present bilateral pterygium we will order last repairer helper referral as well as security engineer referral for diabetic neuropathy screen. Patient stated that in the past was never called from insurance regarding authorization for security engineer. We counseled the patient about importance of medication compliance as well as encourage healthy diet and lifestyle modifications to improve A1c. Due to patient present uncontrolled diabetes mellitus type 2 at this moment we will increase Rybelsus from 3 mg to 7 milligrams as well as lisinopril from 10 mg to 20 mg and follow-up in 2 weeks with BMP to monitor kidney function. 07/05/2024: 69-year-old woman with past medical history of CVA, diabetes mellitus type 2, hypertension, hyperlipidemia who came today to the [facility] for follow up with labs after incresing her dose of lisinopril to 20 mg q day . patient stated that she is feeling well denied any acute complains at this moment , like dizzyness, sob , melenas or any other associated symptoms. she stated that she saw her security engineer already and he order some CMP for check liver function before prescibing antifungals for onychomiscosis . pending gastroenterology appointment for screen colonoscopy and ophatalmology appointment for pterigium possible surgery. BMP shows creatinine has been stable 0.63 after increasing the lisinopril dose, blood pressure reading today was well-controlled 138/68 we will follow-up in 2 months with labs and we will assess patient medication tolerance and later we can try to increase the dose for target blood pressure below 130/90 .We gave patient refills of all the medications Rybelsus, lisinopril, amlodipine, metformin, atorvastatin and Plavix. And we will follow-up with labs in August before patient travel back to [place] for 3 months vacation. 08/30/2024: 69-year-old woman with past medical history of CVA, diabetes mellitus type 2, hypertension, hyperlipidemia who came today to the [facility] for follow up with labs. A1c 7.4 improving from previous A1c of 7.9. Lipid panel, CMP within normal limits. Hemoglobin uptrend from 11.1-12.1 HCT 39.7. Iron panel within normal limits. Patient said that she is feeling well denied any acute complaints denied melena's, dark tarry stools or hematochezia. She stated that she will have her colonoscopy screening next week on September 06, 2024. Due to unclear etiology of patient previous anemia we will order Protonix 40 mg daily for enteric protection as well will follow-up colonoscopy screening results. BP 145/75, will increase amlodipine dose from 5 mg to 10 mg daily and continue current management. 3 months medications refills were given and prescription was sent to your preferred pharmacy [facility] in [facility]. Follow-up appointment with labs in November 2024. Review of Systems Review of Systems Systems Reviewed: All systems reviewed, normal except as documented Objective/Exam Narrative Physical exam: General: No acute distress, well appearing, alert, interactive. HEENT: NC/AT, PERRL, EOMI, bilateral pterygium, good conjugate gaze, moist mucous membranes, oropharynx clear. Neck: Supple, No masses, No adenopathy, carotid pulse 2+ bilaterally without bruits, No JVD, normal range of motion. Chest: Symmetrical, atraumatic, and with equal expansion , Nontender on palpation no deformity and no crepitus. CVS: S1 and S2 present, Regular rate and rhythm, No murmurs, rubs or gallops perceived during auscultation. Lungs: Normal respiratory effort, CTAB, no wheezing, rhonchi or rales perceived during auscultation, No intercostal or subcostal retraction. Abdomen : Soft, no tenderness to palpation, no guarding ,no rebound, +BS, no organomegaly. Extremities: No edema, bilateral onychomycosis, warm well perfused, normal tone and ROM, strength and sensation intact, cap refill less than 2, +2 dp equal bilaterally, able to move all 4 extremities spontaneously. Skin: Intact, no rashes, no lesions, no erythema or jaundice noted Neuro: AOx4, no focal neurologic deficits noted, GCS 15 Psych: Appropriate mood and affect. Assessment & Plan Diagnosis / Problem List (1) Uncontrolled hypertension: Status: Acute Assessment & Plan: Patient has past medical history of hypertension improving today 145/75 we will increase amlodipine dose to 10 mg daily and continue lisinopril 20 p.o. daily for target of BP less than 130/90. Plan: ? Continue lisinopril to 20 mg p.o. daily ? Increase amlodipine 5 mg to 10 mg p.o. daily ? Follow-up in 3 months with labs (2) Type 2 diabetes mellitus: Status: Acute Qualifiers: Diabetes mellitus complication status: without complication Qualified Code(s): E11.9 - Type 2 diabetes mellitus without complications Assessment & Plan: last A1c 7.9 on 06/14/24 Last A1c 7.4 on 08/24/2024 Improving but still uncontrolled at this moment will continue to encourage healthy lifestyle modifications and diet as well as continue medication adherence, to achieving good glucose control and be back on track on A1c goal of less than 7, microalbumin test did not showed proteinuria at this time other eugene we will continue ELLI to prevent proteinuria and decrease risk of kidney disease. Plan: ? Continue Rybelsus to 7 mg p.o. daily ? Continue metformin 500 mg p.o. twice daily ? Empagliflozin 25 mg p.o. daily ? We will consider increase dose of empagliflozin to 50 mg p.o. daily if A1c still not at goal. (3) Microcytic anemia: Status: Resolved Assessment & Plan: Patient stated then a recent trip to [place] was found to be anemic requiring 2 units of PRBCs otherwise patient stated that she was never told what was the cause of the bleeding most likely could be secondary to diverticulosis versus hemorrhoids? vs malignancy? Otherwise malignancy less likely due to patient does not endorse symptoms like weight loss, poor appetite, generalized weakness or constipation. Hemoglobin improved from previous visit from 11.6 to 12.1, iron panel within normal limits patient will have colonoscopy screening for colon cancer on September 06, 2024. Protonix 40 mg p.o. daily was ordered for enteric protection Plan: ? Pending colonoscopy screening on September 06 ? Protonix 40 mg p.o. daily ? Follow-up in 3 months with CBC and colonoscopy screening results (4) Pterygium of both eyes: Status: Acute Assessment & Plan: Patient has bilateral pterygium most likely secondary to sun exposure Plan: ? Clockmaker referral for possible surgery (5) Hyperlipidemia: Status: Acute Qualifiers: Hyperlipidemia type: unspecified Qualified Code(s): E78.5 - Hyperlipidemia, unspecified Assessment & Plan: Patient has previous history of hyperlipidemia and ischemic stroke Plan: Continue atorvastatin 80 mg p.o. q. night follow-up with labs in 3 months (6) History of CVA (cerebrovascular accident) without residual deficits: Status: Acute Assessment & Plan: Patient was on 1 year in dual antiplatelet therapy with aspirin and Plavix per guidelines is require 21 days of dual antiplatelet therapy for ischemic stroke we spoke with the patient about preference to continue aspirin and Plavix or continue with only 1 medication for stroke prevention and patient decided that she would like to continue with Plavix for which ASA was discontinued. Plan: Continue Plavix 75 mg p.o. daily (7) Screen for colon cancer: Status: Acute Assessment & Plan: Previous order for colonoscopy otherwise due to insurance authorization new referral was ordered on previous visit. Patient stated that she she will had colonoscopy on September 06 Plan: ? Pendingr colonoscopy screening on September 06 ? Follow-up in 3 months with colonoscopy screening results Additional Assessment Patient discussed with my attending Dr Shu Raymond MD PGY-3 Disclaimer: Despite multiple revisions, due to the dictation software being used, the document bellow may not be free of grammatical errors including phonetic/typographic errors. However, this does not deter from our commitment to providing health care in the patient's best interest in mind. Advanced Care Planning Advance care planning discussed with:: patient Physician Billing Established Patient Established Patient: E/M Level 4-CPT 44910 Established PCPM Established Patient PCPM: E/M 65+ yrs-CPT 86865 Previous Counseling Previous Counseling: IND 30 min-CPT [address] [facility] Level of Care Nursing/Assessment Patient Status: Established Patient Nursing Assessment/Reassessment: Medication Reconciliation, Update PMH in EMR and Vital Signs Coordination of Care: Complex Care and Chronic Disease 1-5, Consent,records obtained, informed consent, Education Simp Pt/Fam, Lab and Imaging orders and Staff clarify orders Established Patient Charge Established Patient Point Assignment: 100 Established Patient Point Charge: EP Level 3 (80-115)
== END 2024-08-30 10:31 | disposition home or self-care (01) ==
LOC: HODAHC 09:19
PROVIDERS: PCP Student in an Organized Health Care Education/Training Program; Referring Provider Student in an Organized Health Care Education/Training Program; Supervising Provider Internal Medicine; Visit Provider Student in an Organized Health Care Education/Training Program
DX: E11.9 Type 2 diabetes mellitus without complications (principal); I10 Essential (primary) hypertension; E78.5 Hyperlipidemia, unspecified; Z86.73 Personal history of transient ischemic attack (TIA), and cerebral infarction without residual deficits; Z86.2 Personal history of diseases of the blood and blood-forming organs and certain disorders involving the immune mechanism; H11.003 Unspecified pterygium of eye, bilateral
CPT/HCPCS: 99213; G0463

== ENCOUNTER 2024-09-06 08:20 | Day surgery (SDC) | payer MEDICARE, MEDICAID, SELFPAY ==
[2024-09-06] VITALS (10 sets, daily range): BP systolic 80–165; BP diastolic 54–83; PULSE 80–129; RESP 14–20; TEMP 36.3–36.8; O2SAT 96–100; BMI 22.4
[2024-09-06] MEDS: DiphenhydrAMINE INJ 50 MG/ML VIAL 25 MG IV (09:55)
[2024-09-06] MEDS: MIDAZOLAM INJ 1 MG/ML VIAL 2 ML (ASD USE ONLY) 2 MG IV (09:56)
[2024-09-06] MEDS: fentaNYL CIT INJ 50 mCg/ML AMP 2ML (ASD USE ONLY) IV (09:59)
[2024-09-06] MEDS: SODIUM CHLORIDE 0.9% 500 ML 500 ML 20 ML IV (10:07)
== END 2024-09-06 11:05 | disposition home or self-care (01) ==
PROVIDERS: PCP Family Medicine; Referring Provider Specialist; Visit Provider Specialist
PROC: 0DBE8ZX Excision of Large Intestine, Via Natural or Artificial Opening Endoscopic, Diagnostic (ICD-10-PCS; CPT 45380; principal; 2024-09-06 10:00)
DX: K64.9 Unspecified hemorrhoids (principal); K57.30 Diverticulosis of large intestine without perforation or abscess without bleeding
CPT/HCPCS: 45378; J1200; J2250; J3010; J7040

== ENCOUNTER 2024-12-07 13:15 | Outpatient (AMB) | payer MEDICARE, MEDICAID, SELFPAY ==
[2024-12-07 13:34] VITALS: BP 132/71; PULSE 79; RESP 19; TEMP 36.7; O2SAT 98; BMI 24.1
--- NOTE | 2024-12-07 13:34 | PD.RESCLINIC ---
Vital Signs 12/07/24 13:34 Height 1.5 m Height Method Stated Weight 54.204 kg Weight Measurement Method Standing Scale BMI 24.1 BP 132/71 H Blood Pressure Source Automatic Cuff Blood Pressure Location Right Upper Arm Position Sitting Respiration 19 Pulse 79 Pulse Source Monitor Temp 98.0 F Temp Source Temporal Artery Scan Pulse Oximetry (%) 98 Oxygen Delivery Method Room Air Allergies/Meds Allergies & Medications Allergies No Known Allergies Allergy (Verified 09/06/24 08:51) MA Intake Visit Data Collection New Patient or Established: Established Patient (seen at [facility] within 3 years) Seen by Clinical Staff ONLY (RN/MA): No Reason for Visit:: FOLLOW UP Pain Present Currently: No Loss Control Consultant Required: Yes PCP or OBGYN visit in last 3 months: Yes Date of Last PCP or OBGYN visit: 09/06/24 Do You Feel Safe at Home: Yes Authorities Contacted: N/A Smoking Status Smoking Status: Never smoker Immunization / Flu Flu Vaccine in the Last 12 Months: No Flu Vaccine Exclusion Criteria: No Exclusion Criteria Past Medical History Past Medical History NEUROLOGIC: Positive Cerebrovascular Accident (right foot weakness); Negative Neurological Disorders or Seizures CARDIAC: Positive Cardiac Disorders, Hypercholesterolemia and Hypertension; Negative Congestive Heart Failure RESPIRATORY: Negative Chronic Obstructive Pulmonary Disease (COPD) GASTROINTESTINAL: Negative Gastrointestinal Disorders GENITOURINARY: Negative Genitourinary Disorders or Renal Disease REPRODUCTIVE: Negative Pelvic Inflammatory Disease ENT: Positive Cataracts ENDOCRINE: Positive Diabetes Mellitus Type 2; Negative Diabetes Mellitus Type 1 HEMATOLOGIC: Negative Blood Disorders OTHER HISTORY: Positive Hospitalization (last admission 08/07/22), Falls, Blood Transfusions and Chicken Pox; Negative Autoimmune Disease, Down Syndrome, Developmental Delay, Shingles, Blood Transfusion Reaction, Anesthesia Reactions, Measles or Cancer Family History FAMILY HISTORY: Negative Family Psychiatric Problems, Family Respiratory Disorders, Family Cardiac Disorders or Family Gastrointestinal Problems Surgical History SURGICAL: Positive Tubal Ligation; Negative Cardiac Surgery, Ear Surgery or Abdominal Surgery Social History SMOKING STATUS: Smoking status: Never smoker ALCOHOL: Alcohol Intake: Never HOUSING: Housing: House LIVES WITH: Lives With: Family OCCUPATION: 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 Patient Portal Questionaires Social History Living Situation History Housing: House Tobacco History Smoking Status: Never smoker Alcohol History Alcohol Intake: Never Domestic Abuse History Do You Feel Safe at Home: Yes Review of Systems Report any current symptoms Only answer those that you have currently: Past Medical History Past Medical History Have you ever been diagnosed with any of the following: Neurological Problems Cerebrovascular Accident (CVA): Yes (right foot weakness) Seizures: No Cardiology Problems Hypercholesterolemia: Yes Congestive Heart Failure: No Hypertension: Yes Respiratory Problems Chronic Obstructive Pulmonary Disease (COPD): No Genital/Urinary Problems Renal Disease: No Reproductive Problems Pelvic Inflammatory Disease: No Head,Eye,Nose,Throat Problems Cataracts: Yes Endocrine Problems Diabetes Mellitus Type 1: No Diabetes Mellitus Type 2: Yes Other Problems Hospitalization: Yes (last admission 08/07/22) Autoimmune Disease: No Down Syndrome: No Developmental Delay: No Shingles: No Falls: Yes Blood Transfusions: Yes Blood Transfusion Reaction: No Anesthesia Reactions: No Chicken Pox: Yes Measles: No Cancer: No History of Present Illness HPI Narrative Patient is a 68-year-old Danish speaking female with a medical history of CVA, diabetes mellitus type 2, primary hypertension, and hyperlipidemia who presents to [facility] for follow-up. Patient reports since last visit she has been doing good. She denies any recent hospitalizations or acute illness. She has no new symptoms to report today. Patient has history of primary hypertension and currently taking lisinopril. Blood pressure 105/57 and heart rate 83. She denies lightheadedness, dizziness, and no palpitations. Previous systolic blood pressure readings have been trending in the 140s. Patient also denies chest pain, shortness of breath, dyspnea on exertion, and no lower extremity swelling. Patient has been following a low-salt diet. She has been going on daily walks for approximately 30 minutes around the high school. Patient has history of uncontrolled diabetes mellitus type 2. She has been taking Rybelsus, Jardiance, and metformin as prescribed. She denies any GI side effects such as diarrhea, constipation, or indigestion. Previous A1c 8.9% and now 7.6%. She denies any vision changes or numbness/tingling in her feet. She reports she has never seen a brick shader. Patient also has history of CVA and hyperlipidemia. She denies having any residual deficits from her previous CVA. She has been compliant with daily aspirin 81 mg and high intensity atorvastatin. She denies any muscle pain. 09/12/23 Lipid panel: Total cholesterol 92, triglycerides 107, HDL 32, LDL 40 which is significantly improved from previous lipid panel. She denies seeing blood in her stool or urine. Patient denies requiring any medication refills at this time. Patient is retired and unemployed at this time. 06/21/2024: 69-year-old woman with past medical history of CVA, diabetes mellitus type 2, hypertension, hyperlipidemia who came today to the located within [facility] for 6-month follow-up. Patient denied any other complaint at this moment and she stated that she is feeling well and denied any chest pain, palpitations, headache at or dizziness at the moment otherwise she recently arrive from [place] from vacation and she endorsed while she was traveling had an episode of dizziness and she went to the hospital and was found to be anemic requiring 2 units of PRBCs but she does not know the source of the bleeding. She denied melena's, black tarry stools, hematemesis at this moment. Patient previously was referred to gastroenterology for screening colonoscopy and due to insurance authorization needed to wait at a 30-day waiting to do the procedure. She also stated that while she was in [place] the physician who saw her she had her blood pressure medications. Today patient is hypertensive to 170s, labs showed a hemoglobin of 11.6 MCV of 78, platelets within normal limits, lipid panel cholesterol 100.5, triglycerides 144, HDL 36 and LDL 44, A1c increased from 7.0 to 7.9, albumin/creatinine radial less than 7, TSH within normal limits. Patient stated that she has an appointment with scrap drop engineer and she stated that she does not have any retinopathy at this moment otherwise due to patient present bilateral pterygium we will order computer instructor referral as well as brick shader referral for diabetic neuropathy screen. Patient stated that in the past was never called from insurance regarding authorization for brick shader. We counseled the patient about importance of medication compliance as well as encourage healthy diet and lifestyle modifications to improve A1c. Due to patient present uncontrolled diabetes mellitus type 2 at this moment we will increase Rybelsus from 3 mg to 7 milligrams as well as lisinopril from 10 mg to 20 mg and follow-up in 2 weeks with BMP to monitor kidney function. 07/05/2024: 69-year-old woman with past medical history of CVA, diabetes mellitus type 2, hypertension, hyperlipidemia who came today to the located within [facility] for follow up with labs after incresing her dose of lisinopril to 20 mg q day . patient stated that she is feeling well denied any acute complains at this moment , like dizzyness, sob , melenas or any other associated symptoms. she stated that she saw her brick shader already and he order some CMP for check liver function before prescibing antifungals for onychomiscosis . pending gastroenterology appointment for screen colonoscopy and ophatalmology appointment for pterigium possible surgery. BMP shows creatinine has been stable 0.63 after increasing the lisinopril dose, blood pressure reading today was well-controlled 138/68 we will follow-up in 2 months with labs and we will assess patient medication tolerance and later we can try to increase the dose for target blood pressure below 130/90 .We gave patient refills of all the medications Rybelsus, lisinopril, amlodipine, metformin, atorvastatin and Plavix. And we will follow-up with labs in August before patient travel back to [place] for 3 months vacation. 08/30/2024: 69-year-old woman with past medical history of CVA, diabetes mellitus type 2, hypertension, hyperlipidemia who came today to the located within [facility] for follow up with labs. A1c 7.4 improving from previous A1c of 7.9. Lipid panel, CMP within normal limits. Hemoglobin uptrend from 11.1-12.1 HCT 39.7. Iron panel within normal limits. Patient said that she is feeling well denied any acute complaints denied melena's, dark tarry stools or hematochezia. She stated that she will have her colonoscopy screening next week on September 06, 2024. Due to unclear etiology of patient previous anemia we will order Protonix 40 mg daily for enteric protection as well will follow-up colonoscopy screening results. BP 145/75, will increase amlodipine dose from 5 mg to 10 mg daily and continue current management. 3 months medications refills were given and prescription was sent to your preferred pharmacy [facility] in [facility]. Follow-up appointment with labs in November 2024. 12/07/2024 A 69 year old female with past medical history of CVA, diabetes melltus type 2, hypertension, hyperlipidemia who today came to located within [facility] for followup on with labs. A1c increase to 7.7 c uptrended from previous A1c of 7.4. CMP and lipid panel within normal limits. Hg uptrend from 12.1 to 13.3 and Hct from 39.7 to 43.2. Vitamin b12 is elevated. Today patient reports no active complain. She is feeling well. and Denies chest pain, headache, weakness, abd pain, fatigue, muscle ache, changes in bowel movement, hemetamesis, melena and hematochezia. Colonoscopy done on 09/06/24 showed perianal hemorrhoids and small-mouther diverticula. The patient request that all her prescriptions be sent to same [facility] in [place]. She also inquires about the dosages of her blood pressure medications, lisinopril and amlodipine. For which I explained the dosage for and gave reassurance for correct pharmacy dosage. Due to concern on low blood pressure in the past, and decrease dosage of amlodipine from 10mg to 5mg by the pharmacist, I gave the patient a home blood pressure log to documents her readings. Also encourage to call the clinic if she noted BP reading less than 120/80. Vitals are stable with BP 132/71. Refill her prescriptions and sent to [facility] in [facility]. Follow-up in 2-3 weeks. Review of Systems Constitutional Constitutional: Reports system reviewed and no additional complaints, except as documented Objective/Exam General General Appearance: alert, comfortable, cooperative and well groomed Head Head exam: atraumatic and normocephalic Eye Eye exam: Present normal appearance and PERRL Exp ENT External ear exam: Present normal external inspection Neck Neck exam: Present normal inspection and full ROM Chest Chest inspection: Present normal inspection and symmetric chest wall rise Resp Respiratory exam: Present normal lung sounds bilaterally Card Cardiovascular exam: Present regular rate, normal rhythm, normal heart sounds, +S1 and +S2 Abdominal Abdominal exam: Present soft and normal bowel sounds Rectal Rectal exam: Present deferred Extremities Extremities exam: Present normal inspection, full ROM and normal capillary refill Exp LE Upper leg exam: Present normal inspection Neuro Neurological exam: Present alert, oriented X3 and CN II-XII intact Psych Psychiatric exam: Present normal affect Skin Skin exam: Present warm and intact Assessment & Plan Diagnosis / Problem List (1) Uncontrolled type 2 diabetes mellitus: Status: Acute Qualifiers: Coma presence: without coma Assessment & Plan: Last A1c 7.4 on 08/24/2024 Today A1c 7.7 on 12/07/2024 Minimal change in A1c, still uncontrolled at this moment. Will continue to encourage healthy lifestyle modifications and diet as well as continue medication adherence, to achieving good glucose control and be back on track on A1c goal of less than 7. Patient is made aware of her labs findings. Plan: ? Continue Rybelsus 7 mg p.o. daily ? Continue metformin 500 mg p.o. twice daily ? Empagliflozin 25 mg p.o. daily (2) Hypertension: Status: Acute Qualifiers: Hypertension type: unspecified Qualified Code(s): I10 - Essential (primary) hypertension Assessment & Plan: Patient has a history of hypertension, currently well-controlled. Plan: - Encourage pt to use blood pressure kit and log her readings - Continue lisinopril 20 mg po daily - Continue amlodipine 10 mg (3) Microcytic anemia: Status: Resolved (4) History of CVA (cerebrovascular accident) without residual deficits: Status: Acute Assessment & Plan: Patient was on 1 year in dual antiplatelet therapy with aspirin and Plavix per guidelines is require 21 days of dual antiplatelet therapy for ischemic stroke we spoke with the patient about preference to continue aspirin and Plavix or continue with only 1 medication for stroke prevention and patient decided that she would like to continue with Plavix for which ASA was discontinued. Plan: - Continue plavix 75mg po daily (5) Hyperlipidemia: Status: Acute Qualifiers: Hyperlipidemia type: unspecified Qualified Code(s): E78.5 - Hyperlipidemia, unspecified Assessment & Plan: Patient has previous history of hyperlipidemia and ischemic stroke. Last lipid panel on 11/30/2024; Cholesterol 109, Triglycerides 106, HDL 40, LDL 49 Plan: - continue atorvastatin 80 mg po Additional Plan Patient seen and assessed under supervision of attending physician Dr. Ireland and discuss with senior resident Dr. Shrestha PGY-3 Georgiana Somers MD PGY-1, Internal Medicine Advanced Care Planning Advance care planning discussed with:: patient Office Procedures [facility] Level of Care Nursing/Assessment Patient Status: Established Patient Nursing Assessment/Reassessment: Medication Reconciliation, Update PMH in EMR and Vital Signs Coordination of Care: Complex Care and Chronic Disease 1-5, Consent,records obtained, informed consent, Lab and Imaging orders and Results/Orders obtained Established Patient Charge Established Patient Point Assignment: 80 Established Patient Point Charge: Level 3 (80-115)
== END 2024-12-07 14:53 | disposition home or self-care (01) ==
LOC: HODAHC 13:15
PROVIDERS: PCP Student in an Organized Health Care Education/Training Program; Referring Provider Student in an Organized Health Care Education/Training Program; Supervising Provider Internal Medicine; Visit Provider Student in an Organized Health Care Education/Training Program
DX: E11.9 Type 2 diabetes mellitus without complications (principal); I10 Essential (primary) hypertension; E78.5 Hyperlipidemia, unspecified; Z86.73 Personal history of transient ischemic attack (TIA), and cerebral infarction without residual deficits; K64.8 Other hemorrhoids; K57.10 Diverticulosis of small intestine without perforation or abscess without bleeding; Z71.2 Person consulting for explanation of examination or test findings; Z79.84 Long term (current) use of oral hypoglycemic drugs; Z79.02 Long term (current) use of antithrombotics/antiplatelets
CPT/HCPCS: 99213; G0463

== ENCOUNTER 2024-12-21 13:08 | Outpatient (AMB) | payer MEDICARE, MEDICAID, SELFPAY ==
[2024-12-21 13:15] VITALS: BP 121/68; PULSE 80; RESP 18; TEMP 36.7; O2SAT 96; BMI 23.8
--- NOTE | 2024-12-21 13:15 | ACNOTE_ITS ---
Vital Signs 12/21/24 13:15 Height 1.5 m Height Method Stated Weight 53.581 kg Weight Measurement Method Standing Scale BMI 23.8 BP 121/68 Blood Pressure Source Automatic Cuff Blood Pressure Location Right Upper Arm Position Sitting Respiration 18 Pulse 80 Pulse Source Monitor Temp 98.0 F Temp Source Oral Pulse Oximetry (%) 96 Oxygen Delivery Method Room Air Allergies/Meds Allergies & Medications Allergies No Known Allergies Allergy (Verified 12/21/24 13:16) Medication Reconciliation amlodipine 10 mg tablet 10 mg PO QDAY #30 tabs 12/07/24 [Rx Confirmed 12/21/24] atorvastatin 80 mg tablet 80 mg PO QDAY 90 days #90 tabs 12/07/24 [Rx Confirmed 12/21/24] blood pressure monitor (Blood Pressure Kit) #1 ea 12/07/24 [Rx] blood sugar diagnostic (Accu-Chek Alejandrina Plus test strips) #100 ea 12/07/24 [Rx] blood-glucose meter #1 ea 12/07/24 [Rx] clopidogrel 75 mg tablet (Plavix) 75 mg PO QDAY 90 days #90 tabs 12/07/24 [Rx Confirmed 12/21/24] empagliflozin 25 mg tablet (Jardiance) 25 mg PO QAM diabetes 90 days #90 tabs 12/07/24 [Rx Confirmed 12/21/24] lancets (Accu-Chek Softclix Lancets) #100 ea 12/07/24 [Rx] lisinopril 20 mg tablet 20 mg PO QDAY #30 tabs 12/07/24 [Rx Confirmed 12/21/24] metformin 500 mg tablet 500 mg PO BIDWMEAL 30 days #60 tabs 12/07/24 [Rx Confirmed 12/21/24] semaglutide 7 mg tablet (Rybelsus) 7 mg PO QDAY 3 months #90 tabs 12/07/24 [Rx Confirmed 12/21/24] MA Intake Visit Data Collection New Patient or Established: Established Patient (seen at [facility] within 3 years) Seen by Clinical Staff ONLY (RN/MA): No Pain Present Currently: No Pain scale:: 0 Pain Scale Used: Brewster-Aggarwal/Numerical PCP or OBGYN visit in last 3 months: No Smoking Status Smoking Status: Never smoker Immunization / Flu Flu Vaccine in the Last 12 Months: No Flu Vaccine Exclusion Criteria: No Exclusion Criteria Past Medical History Past Medical History NEUROLOGIC: Positive Cerebrovascular Accident (right foot weakness); Negative Neurological Disorders or Seizures CARDIAC: Positive Cardiac Disorders, Hypercholesterolemia and Hypertension; Negative Congestive Heart Failure RESPIRATORY: Negative Chronic Obstructive Pulmonary Disease (COPD) GASTROINTESTINAL: Negative Gastrointestinal Disorders GENITOURINARY: Negative Genitourinary Disorders or Renal Disease REPRODUCTIVE: Negative Pelvic Inflammatory Disease ENT: Positive Cataracts ENDOCRINE: Positive Diabetes Mellitus Type 2; Negative Diabetes Mellitus Type 1 HEMATOLOGIC: Negative Blood Disorders OTHER HISTORY: Positive Hospitalization (last admission 08/07/22), Falls, Blood Transfusions and Chicken Pox; Negative Autoimmune Disease, Down Syndrome, Developmental Delay, Shingles, Blood Transfusion Reaction, Anesthesia Reactions, Measles or Cancer Family History FAMILY HISTORY: Negative Family Psychiatric Problems, Family Respiratory Disorders, Family Cardiac Disorders or Family Gastrointestinal Problems Surgical History SURGICAL: Positive Tubal Ligation; Negative Cardiac Surgery, Ear Surgery or Abdominal Surgery Social History SMOKING STATUS: Smoking status: Never smoker ALCOHOL: Alcohol Intake: Never HOUSING: Housing: House LIVES WITH: Lives With: Family OCCUPATION: Current occupation: Retired hvac field service technician. Patient Portal Questionaires Social History Living Situation History Housing: House Tobacco History Smoking Status: Never smoker Alcohol History Alcohol Intake: Never Review of Systems Report any current symptoms Only answer those that you have currently: Past Medical History Past Medical History Have you ever been diagnosed with any of the following: Neurological Problems Cerebrovascular Accident (CVA): Yes (right foot weakness) Seizures: No Cardiology Problems Hypercholesterolemia: Yes Congestive Heart Failure: No Hypertension: Yes Respiratory Problems Chronic Obstructive Pulmonary Disease (COPD): No Genital/Urinary Problems Renal Disease: No Reproductive Problems Pelvic Inflammatory Disease: No Head,Eye,Nose,Throat Problems Cataracts: Yes Endocrine Problems Diabetes Mellitus Type 1: No Diabetes Mellitus Type 2: Yes Other Problems Hospitalization: Yes (last admission 08/07/22) Autoimmune Disease: No Down Syndrome: No Developmental Delay: No Shingles: No Falls: Yes Blood Transfusions: Yes Blood Transfusion Reaction: No Anesthesia Reactions: No Chicken Pox: Yes Measles: No Cancer: No History of Present Illness HPI Narrative Patient is a 68-year-old Lao speaking female with a medical history of CVA, diabetes mellitus type 2, primary hypertension, and hyperlipidemia who presents to [facility]. Patient reports since last visit she has been doing good. She denies any recent hospitalizations or acute illness. She has no new symptoms to report today. Patient has history of primary hypertension and currently taking lisinopril. Blood pressure 105/57 and heart rate 83. She denies lightheadedness, dizziness, and no palpitations. Previous systolic blood pressure readings have been trending in the 140s. Patient also denies chest pain, shortness of breath, dyspnea on exertion, and no lower extremity swelling. Patient has been following a low-salt diet. She has been going on daily walks for approximately 30 minutes around the high school. Patient has history of uncontrolled diabetes mellitus type 2. She has been zoe ing Rybelsus, Jardiance, and metformin as prescribed. She denies any GI side effects such as diarrhea, constipation, or indigestion. Previous A1c 8.9% and now 7.6%. She denies any vision changes or numbness/tingling in her feet. She reports she has never seen a head cook. Patient also has history of CVA and hyperlipidemia. She denies having any residual deficits from her previous CVA. She has been compliant with daily aspirin 81 mg and high intensity atorvastatin. She denies any muscle pain. 09/12/23 Lipid panel: Total cholesterol 92, triglycerides 107, HDL 32, LDL 40 which is significantly improved from previous lipid panel. She denies seeing blood in her stool or urine. Patient denies requiring any medication refills at this time. Patient is retired and unemployed at this time. 06/21/2024: 69-year-old woman with past medical history of CVA, diabetes mellitus type 2, hypertension, hyperlipidemia who came today to the [facility] for 6-month follow-up. Patient denied any other complaint at this moment and she stated that she is feeling well and denied any chest pain, palpitations, headache at or dizziness at the moment otherwise she recently arrive from [place] from vacation and she endorsed while she was traveling had an episode of dizziness and she went to the hospital and was found to be anemic requiring 2 units of PRBCs but she does not know the source of the bleeding. She denied melena's, black tarry stools, hematemesis at this moment. Patient previously was referred to gastroenterology for screening colonoscopy and due to insurance authorization needed to wait at a 30-day waiting to do the procedure. She also stated that while she was in [place] the physician who saw her she had her blood pressure medications. Today patient is hypertensive to 170s, labs showed a hemoglobin of 11.6 MCV of 78, platelets within normal limits, lipid panel cholesterol 100.5, triglycerides 144, HDL 36 and LDL 44, A1c increased from 7.0 to 7.9, albumin/creatinine radial less than 7, TSH within normal limits. Patient stated that she has an appointment with screw machine setter and she stated that she does not have any retinopathy at this moment otherwise due to patient present bilateral pterygium we will order joinery patternmaker referral as well as head cook referral for diabetic neuropathy screen. Patient stated that in the past was never called from insurance regarding authorization for head cook. We counseled the patient about importance of medication compliance as well as encourage healthy diet and lifestyle modifications to improve A1c. Due to patient present uncontrolled diabetes mellitus type 2 at this moment we will increase Rybelsus from 3 mg to 7 milligrams as well as lisinopril from 10 mg to 20 mg and follow-up in 2 weeks with BMP to monitor kidney function. 07/05/2024: 69-year-old woman with past medical history of CVA, diabetes mellitus type 2, hypertension, hyperlipidemia who came today to the [facility] for follow up with labs after incresing her dose of lisinopril to 20 mg q day . patient stated that she is feeling well denied any acute complains at this moment , like dizzyness, sob , melenas or any other associated symptoms. she stated that she saw her head cook already and he order some CMP for check liver function before prescibing antifungals for onychomiscosis . pending gastroenterology appointment for screen colonoscopy and ophatalmology appointment for pterigium possible surgery. BMP shows creatinine has been stable 0.63 after increasing the lisinopril dose, blood pressure reading today was well-controlled 138/68 we will follow-up in 2 months with labs and we will assess patient medication tolerance and later we can try to increase the dose for target blood pressure below 130/90 .We gave patient refills of all the medications Rybelsus, lisinopril, amlodipine, metformin, atorvastatin and Plavix. And we will follow-up with labs in August before patient travel back to [place] for 3 months vacation. 08/30/2024: 69-year-old woman with past medical history of CVA, diabetes mellitus type 2, hypertension, hyperlipidemia who [facility]. A1c 7.4 improving from previous A1c of 7.9. Lipid panel, CMP within normal limits. Hemoglobin uptrend from 11.1-12.1 HCT 39.7. Iron panel within normal limits. Patient said that she is feeling well denied any acute complaints denied melena's, dark tarry stools or hematochezia. She stated that she will have her colonoscopy screening next week on September 06, 2024. Due to unclear etiology of patient previous anemia we will order Protonix 40 mg daily for enteric protection as well will follow-up colonoscopy screening results. BP 145/75, will increase amlodipine dose from 5 mg to 10 mg daily and continue current management. 3 months medications refills were given and prescription was sent to your preferred pharmacy [facility] in [facility]. Follow-up appointment with labs in November 2024. 12/07/2024 A 69 year old female with past medical history of CVA, diabetes melltus type 2, hypertension, hyperlipidemia who today came to [facility] for followup on with labs. A1c increase to 7.7 c uptrended from previous A1c of 7.4. CMP and lipid panel within normal limits. Hg uptrend from 12.1 to 13.3 and Hct from 39.7 to 43.2. Vitamin b12 is elevated. Today patient reports no active complain. She is feeling well. and Denies chest pain, headache, weakness, abd pain, fatigue, muscle ache, changes in bowel movement, hemetamesis, melena and hematochezia. Colonoscopy done on 09/06/24 showed perianal hemorrhoids and small- mouther diverticula. The patient request that all her prescriptions be sent to same [facility] in [place]. She also inquires about the dosages of her blood pressure medications, lisinopril and amlodipine. For which I explained the dosage for and gave reassurance for correct pharmacy dosage. Due to concern on low blood pressure in the past, and decrease dosage of amlodipine from 10mg to 5mg by the pharmacist, I gave the patient a home blood pressure log to documents her readings. Also encourage to call the clinic if she noted BP reading less than 120/80. Vitals are stable with BP 132/71. Refill her prescriptions and sent to [facility] in [facility]. Follow-up in 2-3 weeks. 12/21/2024: 69-year-old female seen today in the [facility]. Visit malu spencer is follow-up on elevated blood pressure. Currently with no active complaints at this time denies chest pain, shortness of breath, weakness, fatigue no urinary changes or bowel changes. Asked about prescription refills said she does not need at this time. Blood pressure log reviewed average sitting around average systolic of 110 with diastolic of 50. Will continue with current regimen including amlodipine 5 mg, lisinopril 20 mg, Plavix 75 mg, atorvastatin 80 mg, and Rybelsus 7 mg. Will continue to see the patient as needed. Objective/Exam Narrative Physical exam: Physical Exam GENERAL: NAD, AAOx3 HEENT: Moist mucosa. Eyes open, symmetrical, & clear CARDIO: Heart RRR, II/ murmur in RUSB radiating to carotids PULM: No noted coughing/dyspnea CTA B/L, no R/W/R GI: Abdomen soft, nondistended, no pain on palpation. BSx4 SKIN/MSK/EXT: No wounds/rashes/edema/amputations, no pain on palpation. Pedal pulses present B/L NEURO: AAOx3, no focal neuro deficits, able to move all 4 extremities Assessment & Plan Diagnosis / Problem List (1) Uncontrolled hypertension: Status: Acute Plan: Continue with BP Log Continue with amlodipine 5mg qday and lisinopril 20mg (2) Uncontrolled type 2 diabetes mellitus: Status: Acute Qualifiers: Coma presence: without coma Plan: continue with rybelsus, metformin (3) History of CVA (cerebrovascular accident) without residual deficits: Status: Acute Plan: conitnue with plavix and atorvastatin Additional Assessment Attending note: I, Nav Ireland MD, attest that I was physically present for the nichole portions of the service and evaluated the patient with the resident and I reviewed and discussed the case with the resident and agree with the resident's findings and plans of care as documented above. Nav Ireland MD Advanced Care Planning Advance care planning discussed with:: patient Physician Billing Established Patient Established Patient: E/M Level 3-CPT 05110 Office Procedures [facility] Level of Care Nursing/Assessment Patient Status: Established Patient Nursing Assessment/Reassessment: Medication Reconciliation, Update PMH in EMR and Vital Signs Coordination of Care: Complex Care and Chronic Disease 1-5, Education Complex Pt/Fam and Staff clarify orders Established Patient Charge Established Patient Point Assignment: 85 Established Patient Point Charge: EP Level 3 (80-115)
== END 2024-12-21 14:00 | disposition home or self-care (01) ==
LOC: HODAHC 13:08
PROVIDERS: PCP Internal Medicine; Referring Provider Internal Medicine; Supervising Provider Internal Medicine; Visit Provider Student in an Organized Health Care Education/Training Program
DX: I10 Essential (primary) hypertension (principal); E11.9 Type 2 diabetes mellitus without complications; Z79.84 Long term (current) use of oral hypoglycemic drugs; Z86.73 Personal history of transient ischemic attack (TIA), and cerebral infarction without residual deficits; Z79.02 Long term (current) use of antithrombotics/antiplatelets
CPT/HCPCS: 99213; G0463